=== PATIENT | female | born 1930 | race Caucasian/White ===

== ENCOUNTER 2017-03-08 10:21 | Emergency (ER) | payer MEDICARE ==
[2017-03-08] MEDS ORDERED: MECLIZINE 12.5 MG TABLET PO STA (11:33)
--- NOTE | 2017-03-08 11:35 | ED Physician Documentation ---
History of Present Illness - Stated complaint Stated Complaint: DIZZY - Chief complaint Chief Complaint: Neuro - Additonal information Additional information: hx from pt 87 female to ER for vertigo states was a little dizzy last night and worse today dizziness is worse when she lays down hx same - per maybe 2/2 UTI, does not sound like had MRI or neuro eval for same no focal numbness or weakness no GRIFFITH some bladder discomfort no recent URI Review of Systems Constitutional: denies: Fever Ears: denies: Ear pain Nose: denies: Congestion Throat: denies: Sore throat Cardiac: denies: Chest pain / pressure Respiratory: denies: Dyspnea, Cough GI: reports: Abdominal Pain (bladder). denies: Nausea, Vomiting : denies: Now EGA Neurologic: denies: Focal weakness, Numbness, Headache Endocrine: denies: Easy bruising / bleeding Immunocompromised: denies: Immunocompromised PD PAST MEDICAL HISTORY - Past Medical History Past Medical History: Yes Cardiovascular: Hypertension Respiratory: None Endocrine/Autoimmune: None GI: Ulcers, Chronic constipation : None HEENT: Chronic vision loss Psych: Claustrophobia Musculoskeletal: Osteoarthritis Derm: Other - Past Surgical History General: Cholecystectomy, Appendectomy, Colonoscopy, EGD Ortho: Carpal Tunnel surgery /[employer]: Hysterectomy HEENT: Cataracts, Tonsil/Adenoidectomy - Present Medications Home Medications: Ambulatory Orders Medication Instructions Recorded Confirmed Estrogens, Conjugated [Premarin] 1.25 mg PO DAILY 05/10/13 03/08/17 Lisinopril [Zestril] 10 mg PO DAILY 05/10/13 03/08/17 Meclizine [Antivert] 12.5 mg PO Q6H PRN #20 tablet 03/08/17 - Allergies Allergies/Adverse Reactions: Allergies Allergy/AdvReac Type Severity Reaction Status Date / Time erythromycin base Allergy Unknown Unknown Verified 05/13/13 11:18 [Erythromycin Base] - Social History Does the pt smoke?: No Smoking Status: Never smoker PD ED PE NORMAL - Vitals Vital signs reviewed: Yes - General General: Alert and oriented X 3 - HEENT HEENT: PERRL (slight horiz nystagmus looking right) - Neck Neck: Supple, no meningeal sign - Cardiac Cardiac: RRR - Respiratory Respiratory: No respiratory distress, Clear bilaterally - Derm Derm: Normal color - Neuro Neuro: Alert and oriented X 3, steam tunnel feeder 2-12 intact, No motor deficit, No sensory deficit Eye Opening: Spontaneous Motor: Obeys Commands Verbal: Oriented GCS Score: 15 Results - Vitals Vitals: Vital Signs - 24 hr 03/08/17 03/08/17 03/08/17 10:29 11:15 12:17 Temperature 36.1 C L Heart Rate 67 59 L 66 Respiratory 16 13 15 Rate Blood Pressure 150/93 H 156/69 H 128/75 O2 Saturation 100 100 99 Oxygen O2 Source Room air - EKG (time done) 1033 Rate: Rate (enter#) (98) Rhythm: NSR [place]: Normal Intervals: Normal IN QRS: Normal Ischemia: Non specific changes (flat T waves V1 V2) - Labs Labs: Laboratory Tests 03/08/17 03/08/17 03/08/17 11:59 11:59 12:30 WBC 6.1 RBC 4.13 L Hgb 13.2 Hct 39.1 MCV 94.6 MCH 31.9 H MCHC 33.8 RDW 13.4 Plt Count 213 MPV 7.9 Neut # 4.2 Lymph # 1.5 [place] # 0.3 Eos # 0.1 Baso # 0.0 Absolute Nucleated RBC 0.00 Nucleated RBC % 0.0 Sodium 137 Potassium 4.2 Chloride 100 L Carbon Dioxide 25 Anion Gap 12.0 BUN 15 Creatinine 0.8 Estimated GFR (MDRD) 68 L Glucose 96 Calcium 9.1 Urine Color YELLOW Urine Clarity CLEAR Urine pH 5.5 Ur Specific [place] 1.010 Urine Protein NEGATIVE Urine Glucose (UA) NEGATIVE Urine Ketones NEGATIVE Urine Occult Blood NEGATIVE Urine Nitrite NEGATIVE Urine Bilirubin NEGATIVE Urine Urobilinogen 0.2 (NORMAL) Ur Leukocyte Esterase NEGATIVE Ur Microscopic Review NOT INDICATED Urine Culture Comments NOT INDICATED - Rads (name of study) [facility] Radiology: See rad report (generalized age related changes, stable old lacunar infarct, no acute process) Departure - Departure Disposition: 01 Home, Self Care Clinical Impression: Vertigo Condition: Good Instructions: ED Dizziness UKO Follow-Up: Rodrick Lewis MD [Primary Care Provider] - Prescriptions: Meclizine [Antivert] 12.5 mg PO Q6H PRN #20 tablet PRN Reason: Dizziness Comments: The CT scan did not show any acute process, your blood work was fine, and there is no urine infection. I am not certain what caused the dizziness but an ear problem is often the cause. Take the meclizine as needed for further dizzy spells. And follow up with your PMD to discuss getting a MRI and perhaps a neurology evaluation if the symptoms persist
--- NOTE | 2017-03-08 12:06 | CT Preliminary Report ---
Exam: CT HEAD W/O IMPRESSION: 1. Generalized age-related cortical atrophic changes and chronic microangiopathic white matter change s without evidence of acute intracranial abnormality. 2. 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 [facility] SITE ID: [id number]
[2017-03-08 12:07] LABS: BASOPHILS % (AUTO) 0.5 %; EOSINOPHILS # (AUTO) 0.1 10^3/uL (0.0-0.7); EOSINOPHILS % (AUTO) 1.1 %; HCT - HEMATOCRIT 39.1 % (37.0-47.0); HGB - HEMOGLOBIN 13.2 g/dL (12.0-16.0); LYMPHOCYTES # (AUTO) 1.5 10^3/uL (1.5-3.5); LYMPHOCYTES % (AUTO) 24.5 %; MEAN CORPUSCULAR HEMOGLOBIN 31.9 pg (27.0-31.0); MEAN CORPUSCULAR HGB CONC 33.8 g/dL (32.0-36.0); MEAN CORPUSCULAR VOLUME 94.6 fL (81.0-99.0); MEAN PLATELET VOLUME 7.9 fL (7.9-10.8); MONOCYTES # (AUTO) 0.3 10^3/uL (0.0-1.0); MONOCYTES % (AUTO) 4.9 %; NEUTROPHILS # (AUTO) 4.2 10^3/uL (1.5-6.6); RED BLOOD COUNT 4.13 10^6/uL (4.20-5.40); RED CELL DISTRIBUTION WIDTH 13.4 % (12.0-15.0); UNCORRECTED WHITE BLOOD COUNT 6.1 x10^3/uL; WHITE BLOOD COUNT 6.1 x10^3/uL (4.8-10.8)
--- NOTE | 2017-03-08 12:09 | CT Report ---
EXAM: CT HEAD EXAM DATE: 03/08/2017 11:49 AM. CLINICAL HISTORY: Vertigo when laying down. COMPARISON: No head CT comparison. Brain MRI 02/03/2016. TECHNIQUE: Multiaxial CT images were obtained from the foramen magnum to the vertex. Reformats: Coron al. IV contrast: None. In accordance with CT protocol optimization, one or more of the following dose reduction techniques w ere utilized for this exam: automated exposure control, adjustment of mA and/or KV based on patient s ize, or use of iterative reconstructive technique. FINDINGS: Parenchyma: No intraparenchymal hemorrhage. No evidence of mass, midline shift, or CT findings of acu te infarction. Hernandes-white differentiation is distinct. Stable old lacunar infarct in the left basal g anglia. Diffuse chronic microangiopathic white matter changes are evident, similar to the prior MRI p attern. Extraaxial Spaces: Normal for age. No subdural or epidural collections identified. Atherosclerotic ar terial calcifications demonstrated. Ventricles: The ventricles and cortical sulci are enlarged, consistent with age-related tissue loss. Sinuses and orbits: Imaged paranasal sinuses, orbits, and mastoids show no significant abnormality. Bones: No evidence of fracture or calvarial defect. Other: None. IMPRESSION: 1. Generalized age-related cortical atrophic changes and chronic microangiopathic white matter change s without evidence of acute intracranial abnormality. 2. 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 [facility] Referring Provider Line: [phone] SITE ID: [id number]
[2017-03-08 12:15] LABS: CALCIUM 9.1 mg/dL (8.5-10.3); CREATININE 0.8 mg/dL (0.4-1.0); POTASSIUM 4.2 mmol/L (3.5-5.0)
[2017-03-08 12:18] VITALS: BP 128/75
[2017-03-08 12:43] LABS: BILIRUBIN,URINE NEGATIVE (NEGATIVE); PH,URINE 5.5 PH (5.0-7.5)
[2017-03-08 12:52] LABS: UA CHARGE (STRIP ONLY) YES; UR CULTURE IF IND NOT INDICATED
[2017-03-08] MEDS ORDERED: LIDOCAINE PATCH 5% TOP STA (13:18)
== END 2017-03-08 13:45 | disposition home or self-care (01) ==
LOC: ED 10:21
DX: R42 Dizziness and giddiness (principal); I10 Essential (primary) hypertension; Z87.11 Personal history of peptic ulcer disease; M19.90 Unspecified osteoarthritis, unspecified site
CPT/HCPCS: 36415; 70450; 80048; 81003; 85025; 93005; 99283; 99284; A9270; 81001; 87086

== ENCOUNTER 2018-01-23 12:51 | Emergency (ER) | payer MEDICARE ==
--- NOTE | 2018-01-23 13:15 | ED Physician Documentation ---
PD HPI CHEST PAIN - Stated complaint Stated Complaint: CHEST TIGHTNESS - Chief complaint Chief Complaint: Cardiac - History obtained from History obtained from: Patient, Family - History of Present Illness Timing - onset: How many days ago (10) Timing - details: Intermittant Quality: Tightness Location: Substernal Radiation: Other (States radiates to both shoulders) Associated symptoms: Shortness of air (Occasionally) Similar symptoms before: Has not had sx before - Additional information Additional information: Patient is an 88-year-old female who presents to the emergency department with intermittent chest tightness over the past 10 days. States last for approximately 3-10 minutes at a time. Sometimes occurs at rest and sometimes occurs while walking up the stairs. Has never had prior symptoms similar to this. No history of acute coronary syndrome. Saw her PCP today who noticed T waves inversions on her EKG and sent her here. She states that this is been occurring 3-4 times per day. Denies any fevers, coughing, travel, leg swelling. Review of Systems Ten Systems: 10 systems reviewed and negative Constitutional: denies: Fever, Chills Ears: denies: Ear pain Nose: denies: Rhinorrhea / runny nose, Congestion Throat: denies: Sore throat Cardiac: denies: Palpitations Respiratory: denies: Cough GI: denies: Abdominal Pain, Nausea, Vomiting : denies: Dysuria Skin: denies: Rash Musculoskeletal: denies: Neck pain, Back pain Neurologic: denies: Focal weakness, Numbness, Headache PD PAST MEDICAL HISTORY - Past Medical History Past Medical History: Yes Cardiovascular: Hypertension Respiratory: None Endocrine/Autoimmune: None GI: Ulcers, Chronic constipation : None HEENT: Chronic vision loss Psych: Claustrophobia Musculoskeletal: Osteoarthritis Derm: Other - Past Surgical History General: Cholecystectomy, Appendectomy, Colonoscopy, EGD Ortho: Carpal Tunnel surgery /[employer]OR [employer]: Hysterectomy HEENT: Cataracts, Tonsil/Adenoidectomy - Present Medications Home Medications: Ambulatory Orders Medication Instructions Recorded Confirmed Estrogens, Conjugated [Premarin] 1.25 mg PO DAILY 05/10/13 03/08/17 Lisinopril [Zestril] 10 mg PO DAILY 05/10/13 03/08/17 - Allergies Allergies/Adverse Reactions: Allergies Allergy/AdvReac Type Severity Reaction Status Date / Time erythromycin base Allergy Unknown Unknown Verified 01/23/18 13:05 [Erythromycin Base] - Social History Does the pt smoke?: No Smoking Status: Never smoker PD ED PE NORMAL - Vitals Vital signs reviewed: Yes - General General: Alert and oriented X 3, No acute distress - HEENT HEENT: Moist mucous membranes - Neck Neck: Supple, no meningeal sign - Cardiac Cardiac: RRR, Strong equal pulses - Respiratory Respiratory: No respiratory distress, Clear bilaterally - Abdomen Abdomen: Soft, Non tender, Non distended - Derm Derm: Warm and dry - Extremities Extremities: No edema, No calf tenderness / cord - Neuro Neuro: Alert and oriented X 3 - Psych Psych: Normal mood Results - Vitals Vitals: Vital Signs - 24 hr 01/23/18 01/23/18 12:58 14:01 Temperature 36.4 C L Heart Rate 115 H 84 Respiratory 15 20 Rate Blood Pressure 112/65 126/66 O2 Saturation 98 97 Oxygen O2 Source Room air - EKG (time done) 1304 Rate: Rate (enter#) (81) Rhythm: NSR [place]: Normal Intervals: Normal [place] Ischemia: Q waves (V1-2), T wave inversion (V3-5, II, III, aVF. ) Compare to prior EKG: Changed from prior EKG (new T wave inversion V3-5 since 03/08/17) - Labs Labs: Laboratory Tests 01/23/18 01/23/18 01/23/18 13:17 13:17 13:17 WBC 6.3 RBC 3.58 L Hgb 11.5 L Hct 34.0 L MCV 94.9 MCH 32.1 H MCHC 33.8 RDW 13.8 Plt Count 206 MPV 8.6 Neut # (Auto) 4.6 Lymph # (Auto) 1.4 L [place] # (Auto) 0.3 Eos # (Auto) 0.1 Baso # (Auto) 0.0 Absolute Nucleated RBC 0.00 Nucleated RBC % 0.0 Sodium 134 L Potassium 3.8 Chloride 101 Carbon Dioxide 25 Anion Gap 8.0 BUN 13 Creatinine 0.8 Estimated GFR (MDRD) 68 L Glucose 108 H Calcium 8.6 Total Bilirubin 0.4 AST 29 ALT 16 Alkaline Phosphatase 56 Troponin I 0.08 Total Protein 6.5 L Albumin 3.3 Globulin 3.2 Albumin/Globulin Ratio 1.0 Lipase 27 - Rads (name of study) cxr Radiology: Prelim report reviewed, EMP read contemporaneously, See rad report (No acute cardiopulmonary disease) PD MEDICAL DECISION MAKING - ED course Complexity details: reviewed results, re-evaluated patient, considered differential, d/w patient, d/w consultant rn ED course: Patient is an 88-year-old female with chest pain that had been exertional but is now occurring at rest and radiating to both arms. Clinically sounds like unstable angina and her troponin is mildly elevated into the indiscriminate zone at 0.08. She was started on a heparin drip and given 25 mg of metoprolol. I spoke with Dr. Granados, cardiology on-call at [facility] who recommends admission to the hospitalist there and cardiology to be consulted for likely angiogram. COBRA forms filled out. Dr. Smith (hospitalist) graciously accepts in transfer [id number]. This document was made in part using voice recognition software. While efforts are made to proofread this document, sound alike and grammatical errors may occur. Departure - Departure Disposition: 02 Transfer Acute Care Hosp Clinical Impression: Unstable angina Condition: Stable
[2018-01-23] MEDS ORDERED: ASPIRIN CHEW 81 MG TABLET PO STA (13:32)
[2018-01-23 13:42] LABS: BASOPHILS % (AUTO) 0.3 %; EOSINOPHILS # (AUTO) 0.1 10^3/uL (0.0-0.7); EOSINOPHILS % (AUTO) 1.2 %; HGB - HEMOGLOBIN 11.5 g/dL (12.0-16.0); LYMPHOCYTES # (AUTO) 1.4 10^3/uL (1.5-3.5); LYMPHOCYTES % (AUTO) 21.7 %; MEAN CORPUSCULAR HEMOGLOBIN 32.1 pg (27.0-31.0); MEAN CORPUSCULAR HGB CONC 33.8 g/dL (32.0-36.0); MEAN CORPUSCULAR VOLUME 94.9 fL (81.0-99.0); MEAN PLATELET VOLUME 8.6 fL (7.9-10.8); MONOCYTES # (AUTO) 0.3 10^3/uL (0.0-1.0); MONOCYTES % (AUTO) 4.3 %; NEUTROPHILS # (AUTO) 4.6 10^3/uL (1.5-6.6); NEUTROPHILS % (AUTO) 72.5 %; PLT - PLATELET COUNT 206 10^3/uL (130-450); RED BLOOD COUNT 3.58 10^6/uL (4.20-5.40); RED CELL DISTRIBUTION WIDTH 13.8 % (12.0-15.0); WHITE BLOOD COUNT 6.3 x10^3/uL (4.8-10.8)
[2018-01-23 14:01] LABS: ALBUMIN 3.3 g/dL (3.2-5.5); BILIRUBIN,TOTAL 0.4 mg/dL (0.2-1.0); CALCIUM 8.6 mg/dL (8.5-10.3); CREATININE 0.8 mg/dL (0.4-1.0); TOTAL PROTEIN 6.5 g/dL (6.7-8.2)
--- NOTE | 2018-01-23 14:01 | XRAY Report ---
Reason: chest tightness Procedure Date: 01/23/2018 Accession Number: [id number] / [id number] Procedure: XR - Chest 1 View X-Ray CPT Code: 24370 FULL RESULT: EXAM: CHEST RADIOGRAPHY EXAM DATE: 01/23/2018 01:48 PM. CLINICAL HISTORY: Chest tightness. COMPARISON: Chest 08/16/2013. TECHNIQUE: 1 view. FINDINGS: Lungs/Pleura: No focal opacities evident. No pleural effusion. No pneumothorax. Mediastinum: Within exam limitations, the cardiomediastinal contour is normal. IMPRESSION: No evidence of acute thoracic process [facility]
[2018-01-23] MEDS ORDERED: HEPARIN 25000UNITS/500ML (D5W) 25,000 UNIT/500 ML BAG IV STA (14:25)
[2018-01-23] MEDS ORDERED: METOPROLOL TARTRATE 50 MG TABLET PO STA (14:28)
[2018-01-23 16:33] VITALS: BP 118/67
== END 2018-01-23 16:33 | disposition short-term general hospital (02) ==
LOC: ED 12:51
DX: I20.0 Unstable angina (principal); I10 Essential (primary) hypertension
CPT/HCPCS: 36415; 71045; 80053; 83690; 84484; 85025; 93005; 96374; 96376; 99284; A9270; 99285

== ENCOUNTER 2018-01-23 16:43 | Outpatient (CLI) | payer MEDICARE | END 2018-01-23 16:44 | disposition short-term general hospital (02) | LOC: EMS 16:43 | PROVIDERS: ATTEND Surgery | DX: I20.0 Unstable angina (principal) | CPT/HCPCS: A0425; A0426 ==

== ENCOUNTER 2018-02-19 13:38 | Outpatient (CLI) | payer MEDICARE | END 2018-02-19 13:39 | disposition home or self-care (01) | LOC: DI 13:38 | PROVIDERS: ATTEND Nurse Practitioner | DX: R94.31 Abnormal electrocardiogram [ECG] [EKG] (principal); I07.1 Rheumatic tricuspid insufficiency | CPT/HCPCS: 93306 ==

== ENCOUNTER 2018-04-16 13:24 | Outpatient (CLI) | payer MEDICARE ==
--- NOTE | 2018-04-17 08:47 | Mammography Report ---
Reason: ANNUAL SCREENING Procedure Date: 04/16/2018 Accession Number: [id number] / [id number] Procedure: TONY - Screening Mammo Dig Bilat CPT Code: FULL RESULT: EXAM: Screening Mammo Dig Bilat DATE: 04/16/2018 3:02 PM CLINICAL HISTORY: Screening encounter. History of 35 years of hormone therapy. TECHNIQUE: Bilateral CC, laterally exaggerated CC, MLO views were obtained. COMPARISON: 02/03/2016 through 08/24/2010. FINDINGS: The breasts demonstrate scattered fibroglandular densities bilaterally. Typically benign vascular calcifications are again seen. No suspicious masses, clustered microcalcifications, or regions of architectural distortion are identified. IMPRESSION: Benign findings RECOMMENDATION: Routine annual screening unless otherwise clinically indicated. BIRADS CATEGORY 2: Benign findings STANDARD QUALIFYING STATEMENTS: 1. This examination was not reviewed with the aid of Computer-Aided Detection (CAD). 2. A negative or benign imaging report should not preclude biopsy if clinically suspicious findings are present. 3. Dense breasts may obscure an underlying neoplasm. 4. This examination was reviewed without the aid of 3D breast imaging (tomosynthesis).
== END 2018-04-16 13:25 | disposition home or self-care (01) ==
LOC: DI 13:24
DX: Z12.31 Encounter for screening mammogram for malignant neoplasm of breast (principal)
CPT/HCPCS: 77067

== ENCOUNTER 2018-08-06 09:19 | Outpatient (CLI) | payer MEDICARE ==
[2018-08-06 09:48] LABS: CALCIUM 8.9 mg/dL (8.5-10.3); CREATININE 0.8 mg/dL (0.4-1.0); MAGNESIUM 1.9 mg/dL (1.7-2.8)
== END 2018-08-06 09:20 | disposition home or self-care (01) ==
LOC: LAB 09:19
PROVIDERS: ATTEND Nurse Practitioner
DX: I10 Essential (primary) hypertension (principal); I25.10 Atherosclerotic heart disease of native coronary artery without angina pectoris
CPT/HCPCS: 36415; 80048; 83735

== ENCOUNTER 2018-10-16 09:57 | Outpatient (CLI) | payer MEDICARE ==
[2018-10-16 10:53] LABS: ALBUMIN 3.1 g/dL (3.2-5.5); BILIRUBIN,TOTAL 0.8 mg/dL (0.2-1.0); CALCIUM 8.5 mg/dL (8.5-10.3); CREATININE 0.8 mg/dL (0.4-1.0); MAGNESIUM 1.8 mg/dL (1.7-2.8); TOTAL PROTEIN 6.3 g/dL (6.7-8.2)
[2018-10-21 17:07] LABS: HDL LARGE 9013 nmol/L (3966-11938); LDL PARTICLE NUMBER 481 nmol/L (732-2035); LDL PATTERN B Pattern (A); LDL PEAK SIZE 202.9 Angstrom (> OR = 217.4); LDL SMALL 76 nmol/L (75-452)
== END 2018-10-16 09:58 | disposition home or self-care (01) ==
LOC: LAB 09:57
PROVIDERS: ATTEND Specialist
DX: I25.10 Atherosclerotic heart disease of native coronary artery without angina pectoris (principal); I49.3 Ventricular premature depolarization; I10 Essential (primary) hypertension
CPT/HCPCS: 36415; 80053; 80061; 81599; 83704; 83735

== ENCOUNTER 2019-01-11 11:14 | Outpatient (CLI) | payer MEDICARE ==
[2019-01-11] MEDS ORDERED: IOVERSOL 320 100 ML VIAL IVP ONE ×2 (11:50→12:59)
[2019-01-11] MEDS ORDERED: IOVERSOL 320 50 ML VIAL ONE (11:50)
[2019-01-11 11:51] LABS: ALBUMIN 3.2 g/dL (3.2-5.5); ALBUMIN/GLOBULIN RATIO 0.9 (1.0-2.2); BILIRUBIN,TOTAL 0.8 mg/dL (0.2-1.0); CALCIUM 8.9 mg/dL (8.5-10.3); CREATININE 0.9 mg/dL (0.4-1.0); TOTAL PROTEIN 6.8 g/dL (6.7-8.2)
[2019-01-11] MEDS ORDERED: IOVERSOL 320 50 ML VIAL PO ONE (12:59)
--- NOTE | 2019-01-13 05:25 | CT Report ---
Reason: ADBOMINAL PAIN Procedure Date: 01/11/2019 Accession Number: [id number] / [id number] Procedure: CT - Abdomen/Pelvis W CPT Code: FULL RESULT: EXAM: CT ABDOMEN AND PELVIS EXAM DATE: 01/11/2019 12:58 PM. CLINICAL HISTORY: ADBOMINAL PAIN. COMPARISONS: 09/28/2010 10:50 AM. TECHNIQUE: Routine helical CT imaging was performed through the abdomen and pelvis. IV contrast: OPTI 320 80ML. Enteric contrast: Yes. Reconstructions: Coronal and sagittal. In accordance with CT protocol optimization, one or more of the following dose reduction techniques were utilized for this exam: automated exposure control, adjustment of mA and/or KV based on patient size, or use of iterative reconstructive technique. FINDINGS: Lung Bases: No focal consolidation seen. Mild cardiomegaly. Coronary artery calcifications. Liver: Liver cysts. Gallbladder/Bile Ducts: Status post cholecystectomy. Spleen: Normal. Pancreas: Normal. Adrenal Glands: Normal. Kidneys: Normal. No masses or hydronephrosis. Peritoneal Cavity/Bowel: No bowel obstruction seen. Colonic diverticula without definite diverticulitis. No free air or free fluid. No lymphadenopathy. Appendix is not optimally seen. Some images suggest a small normal appendix. Pelvic Organs: Uterus is not seen. Again noted is prominent vaginal cuff with cystic areas, similar compared with the prior CT. Urinary bladder is nondistended. Vasculature: Moderate atherosclerosis. No aortic aneurysm. Bones: Osteopenia. Degenerative changes in the spine. Ankylosis of the left sacroiliac joint. Lumbar levoscoliosis. Other: None. IMPRESSION: 1. No acute inflammatory or obstructive process seen in the abdomen or pelvis. 2. Status post hysterectomy with prominent vaginal cuff containing multiple cystic areas. This is similar compared with the prior CT. 3. Mild cardiomegaly and coronary artery calcifications. 4. Colonic diverticula without definite diverticulitis. [facility]
== END 2019-01-11 11:15 | disposition home or self-care (01) ==
LOC: DI 11:14
PROVIDERS: ATTEND Nurse Practitioner
DX: R10.31 Right lower quadrant pain (principal); K57.30 Diverticulosis of large intestine without perforation or abscess without bleeding; N89.8 Other specified noninflammatory disorders of vagina; Z90.710 Acquired absence of both cervix and uterus; I25.10 Atherosclerotic heart disease of native coronary artery without angina pectoris; M43.28 Fusion of spine, sacral and sacrococcygeal region; M85.89 Other specified disorders of bone density and structure, multiple sites
CPT/HCPCS: 36415; 74177; 80053; Q9967

== ENCOUNTER 2019-06-19 11:24 | Outpatient (CLI) | payer MEDICARE ==
[2019-06-19 11:57] LABS: ALBUMIN 3.5 g/dL (3.2-5.5); BILIRUBIN,TOTAL 0.7 mg/dL (0.2-1.0); CALCIUM 8.8 mg/dL (8.5-10.3); CREATININE 0.8 mg/dL (0.4-1.0); MAGNESIUM 1.9 mg/dL (1.7-2.8); TOTAL PROTEIN 7.1 g/dL (6.7-8.2)
[2019-06-22 13:00] LABS: HDL LARGE 12226 nmol/L (>6729); LDL PARTICLE NUMBER 864 nmol/L (<1138); LDL PATTERN A Pattern (A); LDL PEAK SIZE 218.7 Angstrom (>222.9); LDL SMALL 128 nmol/L (<142)
== END 2019-06-19 11:25 | disposition home or self-care (01) ==
LOC: LAB 11:24
PROVIDERS: ATTEND Specialist
DX: I25.10 Atherosclerotic heart disease of native coronary artery without angina pectoris (principal); I49.3 Ventricular premature depolarization; I10 Essential (primary) hypertension
CPT/HCPCS: 36415; 80053; 80061; 81599; 83704; 83735

== ENCOUNTER 2019-07-05 10:00 | Outpatient (CLI) | payer MEDICARE | END 2019-07-05 23:59 | disposition home or self-care (01) | LOC: LAB.R 10:00 | PROVIDERS: ATTEND Family Medicine | DX: R10.30 Lower abdominal pain, unspecified (principal) | CPT/HCPCS: 87086 ==

== ENCOUNTER 2019-07-19 08:00 | Outpatient (CLI) | payer MEDICARE | END 2019-07-19 23:59 | disposition home or self-care (01) | LOC: LAB.WCP 08:00 | PROVIDERS: ATTEND Nurse Practitioner | DX: R30.0 Dysuria (principal) | CPT/HCPCS: 81002 ==

== ENCOUNTER 2019-12-30 08:00 | Outpatient (CLI) | payer MEDICARE ==
[2019-12-30 18:18] LABS: ALBUMIN 3.5 g/dL (3.2-5.5); ALBUMIN/GLOBULIN RATIO 0.9 (1.0-2.2); BILIRUBIN,TOTAL 0.6 mg/dL (0.2-1.0); CALCIUM 8.9 mg/dL (8.5-10.3); CREATININE 0.7 mg/dL (0.4-1.0); MAGNESIUM 1.9 mg/dL (1.7-2.8); TOTAL PROTEIN 7.4 g/dL (6.7-8.2)
[2020-01-04 10:02] LABS: HDL LARGE 9865 nmol/L (>6729); LDL PARTICLE NUMBER 644 nmol/L (<1138); LDL PATTERN A Pattern (A); LDL PEAK SIZE 222.3 Angstrom (>222.9); LDL SMALL 98 nmol/L (<142)
== END 2019-12-30 23:59 | disposition home or self-care (01) ==
LOC: LAB 08:00
PROVIDERS: ATTEND Specialist
DX: E78.00 Pure hypercholesterolemia, unspecified (principal); I49.3 Ventricular premature depolarization
CPT/HCPCS: 36415; 80053; 80061; 81599; 83704; 83735

== ENCOUNTER 2020-01-28 08:00 | Outpatient (CLI) | payer MEDICARE ==
[2020-01-28 18:05] LABS: BASOPHILS % (AUTO) 0.6 %; EOSINOPHILS % (AUTO) 0.6 %; HGB - HEMOGLOBIN 12.7 g/dL (12.0-16.0); LYMPHOCYTES # (AUTO) 1.9 10^3/uL (1.5-3.5); LYMPHOCYTES % (AUTO) 25.8 %; MEAN CORPUSCULAR HEMOGLOBIN 31.7 pg (27.0-31.0); MEAN CORPUSCULAR HGB CONC 32.7 g/dL (32.0-36.0); MEAN CORPUSCULAR VOLUME 96.8 fL (81.0-99.0); MEAN PLATELET VOLUME 10.3 fL (7.9-10.8); MONOCYTES # (AUTO) 0.4 10^3/uL (0.0-1.0); MONOCYTES % (AUTO) 5.7 %; NEUTROPHILS # (AUTO) 4.8 10^3/uL (1.5-6.6); NEUTROPHILS % (AUTO) 67.2 %; PLT - PLATELET COUNT 253 10^3/uL (130-450); RED BLOOD COUNT 4.01 10^6/uL (4.20-5.40); WHITE BLOOD COUNT 7.2 x10^3/uL (4.8-10.8)
[2020-01-28 18:28] LABS: ALBUMIN 3.6 g/dL (3.2-5.5); BILIRUBIN,TOTAL 0.4 mg/dL (0.2-1.0); CALCIUM 9.1 mg/dL (8.5-10.3); CREATININE 0.7 mg/dL (0.4-1.0); TOTAL PROTEIN 7.3 g/dL (6.7-8.2)
== END 2020-01-28 23:59 | disposition home or self-care (01) ==
LOC: LAB.WCP 08:00
PROVIDERS: ATTEND Family Medicine
DX: R10.31 Right lower quadrant pain (principal)
CPT/HCPCS: 36415; 80053; 85025

== ENCOUNTER 2020-04-06 14:02 | Outpatient (CLI) | payer MEDICARE ==
--- NOTE | 2020-04-06 15:23 | XRAY Report ---
PROCEDURE: Lumbar Spine 2 View INDICATIONS: LOW BACK PAIN TECHNIQUE: 2 views of the lumbar spine were acquired. COMPARISON: CT of abdomen and pelvis dated 01/11/2019. FINDINGS: Bones: 5 [id number] vertebrae are present. There is mild to moderate levoscoliosis of lumbar s pine centered at L3 level. Degenerative endplate changes and decreased intervertebral disc space thro ughout lumbar spine is seen most severe at L2-3 and L3-4 levels. Age indeterminant anterior wedge com pression deformity at T12 and L2 levels are seen with up to 20% loss of T12 vertebral body height ant eriorly. This is a new finding since 2019 study. No suspicious bony lesions. Soft tissues: Overlying bowel gas pattern is normal. No suspicious soft tissue calcifications. IMPRESSION: 1. Moderate levoscoliosis of lumbar spine centered at L3 level. Degenerative disc disease throughout lumbar spine more prominent at L2-3 and L3-4 levels. 2. Age-indeterminate anterior wedge compression deformity at T12 and L2 levels not definitely seen on previous CT study in 2019. Reviewed by: Kaleb Rea MD on 04/06/2020 3:22 PM PST Approved by: Kaleb Rea MD on 04/06/2020 3:22 PM PST Station ID: [id number]
== END 2020-04-06 14:03 | disposition home or self-care (01) ==
LOC: DI.WCP 14:02
PROVIDERS: ATTEND Nurse Practitioner
DX: S22.080A Wedge compression fracture of T11-T12 vertebra, initial encounter for closed fracture (principal); S32.020A Wedge compression fracture of second lumbar vertebra, initial encounter for closed fracture; M51.36 Other intervertebral disc degeneration, lumbar region; M41.86 Other forms of scoliosis, lumbar region; Z91.81 History of falling

== ENCOUNTER 2020-07-23 12:07 | Outpatient (CLI) | payer MEDICARE ==
--- NOTE | 2020-07-23 15:27 | CT Report ---
PROCEDURE: LUMBAR SPINE WO INDICATIONS: COLLAPSED VERTEBRA TECHNIQUE: Noncontrast 3 mm thick sections acquired from the T12 level to the sacrum. Sagittal and coronal refo rmats were constructed. For radiation dose reduction, the following was used: automated exposure co ntrol, adjustment of mA and/or kV according to patient size. COMPARISON: Correlation is made with prior lumbar spine plain films, 04/06/2020. Correlation is also made with prior abdomen pelvis CT, 01/11/2019. FINDINGS: Image quality: Excellent. Bones: There is again seen a T12 central compression deformity, with 20-30% loss of height centrally . This is similar to the prior plain film study. L2 anterior wedge deformity is also seen, with appro ximately 20% loss of height anteriorly. This is also similar to the prior film. No acute vertebral any dy compression fractures. No suspicious lytic or blastic bony lesions. Central spinal caliber is of normal overall caliber. N o pars defects. Moderate levoconvex lumbar scoliosis is seen. Minimal anterolisthesis is seen at the L2-L3 and the L3 -L4 levels. Minimal retrolisthesis is seen at L4-L5 and L5-S1. Age-appropriate osteopenia can be seen . T12-L1: Normal in appearance. L1-L2: No significant abnormality is seen. L2-L3: Moderate to severe loss of disc height is seen. There is a degree of vertebral body bridgin g seen at this level. Moderate disc bulge is seen at this level. There is moderate right-sided and no significant left-sided neuroforaminal narrowing seen. Mild central canal narrowing is seen. L3-L4: Moderate to severe loss of disc height is seen. A degree of vertebral body bridging is seen at this level. Moderate facet hypertrophy is seen. Moderate bilateral neural foraminal narrowing i s seen. There is minimal right-sided and no significant left-sided neuroforaminal narrowing seen. No significant central canal narrowing is seen. L4-L5: Moderate to severe loss of disc height is seen. Vacuum disc phenomenon is seen at this leve l. Moderate disc bulge is seen at this level. Mild to moderate facet hypertrophy is seen. Moderat e bilateral neural foraminal narrowing is seen. At least moderate central canal narrowing can be see n, as on series 3 image 49. L5-S1: Moderate to severe loss of disc height is seen on the left side. Vacuum disc phenomenon is seen at this level. Mild to moderate disc bulge is seen. Mild to moderate facet hypertrophy can be s een at this level. There is at least moderate left-sided and no significant right-sided neuroforamina l narrowing seen. Mild central canal narrowing is seen. Soft tissues: No retroperitoneal masses or hematomas. Visualized aorta is normal in caliber. Ather osclerotic calcification is seen. Cholecystectomy clips are seen. Diverticulosis can be seen, withou t lorenzo findings of active diverticulitis. Status post hysterectomy. Cystic foci can again be seen wi thin the region of the vaginal cuff. IMPRESSION: Stable T12 and L2 fractures compared to the prior film. Moderate levoconvex scoliosis. Multiple levels of relatively prominent lumbar spine degenerative change are seen. Incidental note is made of: Cholecystectomy Atelectatic calcification Diverticulosis is seen, yet without findings of active diverticulitis. Status post hysterectomy, with cystic foci seen within the region of the vaginal cuff Reviewed by: Williams Sanchez MD on 07/23/2020 2:26 PM EDUIN Approved by: Williams Sanchez MD on 07/23/2020 2:26 PM EDUIN Station ID: [id number]
== END 2020-07-23 12:08 | disposition home or self-care (01) ==
LOC: DI 12:07
PROVIDERS: ATTEND Internal Medicine
DX: M48.56XA Collapsed vertebra, not elsewhere classified, lumbar region, initial encounter for fracture (principal); M47.816 Spondylosis without myelopathy or radiculopathy, lumbar region; M41.9 Scoliosis, unspecified